=== PATIENT | male | born 1970 | race Caucasian/White ===

== ENCOUNTER 2017-08-18 08:47 | Emergency (ER) | payer OTHER ==
[2017-08-18] MEDS ORDERED: Ondansetron 4 MG/2 ML SDV IVPUSH STA (09:16)
[2017-08-18] MEDS ORDERED: Morphine 4 MG/ML Syringe IVPUSH ONE (09:16)
[2017-08-18] MEDS ORDERED: Sodium Chloride 0.9% 1,000 ML IV ONE (09:16)
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
[2017-08-18 09:53] LABS: CHLORIDE,CL 101 mEq/L (98-106); SODIUM,NA 132 mEq/L (136-145)
[2017-08-18] MEDS ORDERED: metroNIDAZOLE/Normal Saline 500 MG in Premix Bag 1 BAG IV ONE (11:21)
[2017-08-18] MEDS ORDERED: Levofloxacin/Dextrose 5%-Water 750 MG in Premix Bag 1 BAG IV ONE (11:21)
[2017-08-18 11:23] VITALS: BP 160/100
[2017-08-18] MEDS ORDERED: Levofloxacin/Dextrose 5%-Water 150 ML IV ONE (11:44)
== END 2017-08-18 12:12 ==
LOC: CC.ED 08:47
DX: K57.20 Diverticulitis of large intestine with perforation and abscess without bleeding (principal); N34.2 Other urethritis; Z88.0 Allergy status to penicillin; Z79.899 Other long term (current) drug therapy
CPT/HCPCS: 36415; 74176; 80053; 81001; 82150; 85025; 86140; 96361; 96365; 96368; 96375; 99285; J1956; J2270; J2405; J7030

== ENCOUNTER → 2017-10-11 | Day surgery (SDC) | payer OTHER ==
[~2017-10-11] MED LIST: Propofol 200 MG/20 ML SDV IV ONE
[2017-10-11] MEDS: Lactated Ringers 1,000 ML IV SCH (10:20)
[2017-10-11 12:28] VITALS: BP 148/78
--- NOTE | 2017-10-14 09:51 | OR ---
DATE OF OPERATION: 10/11/2017 PREOPERATIVE DIAGNOSIS: RECURRENT DIVERTICULITIS. POSTOPERATIVE DIAGNOSIS: RECURRENT DIVERTICULITIS. SURGEON: Rodri Chacon MD PROCEDURE: FULL-LENGTH COLONOSCOPY WITH BIOPSIES X1, POLYP REMOVAL X2. ANESTHESIA: CLINICAL UNIT EDUCATOR due to obesity. COMPLICATIONS: None. SPECIMEN: 1. Distal sigmoid biopsy. 2. Two small hyperplastic polyps, rectosigmoid junction. FINDINGS: 1. Full-length colonoscopy. 2. Moderate sigmoid diverticulosis, the distal sigmoid colon to rectosigmoid junction without any active in diverticulitis. 3. Two small hyperplastic polyps, rectosigmoid junction. RECOMMENDATIONS: Patient will follow up with [facility] for pathology reports. Given his recurrent problems and moderate disease, he may want to consider surgical consultation. INDICATIONS: Patient has had recurrent diverticulitis over the last six months. He was recommended to have a followup colonoscopy. DESCRIPTION OF PROCEDURE: The patient was prepped and draped, placed in the left lateral decubitus position. A lubricated Olympus colonoscope was inserted and easily advanced to the cecum. Direct visualization of the ileocecal valve and appendiceal orifice was accomplished. The bowel prep was adequate. There was stool throughout but most of this was suctionable. Upon withdrawal, cecum, ascending, and transverse colon were completely benign. In the descending colon and proximal sigmoid area, there were no abnormalities. Throughout the sigmoid region, patient had really no significant diverticular disease until its most distal portion; the mid to distal portion to the rectosigmoid junction had moderate diverticular disease without any acute inflammatory changes, no signs of active diverticulitis. In the rectosigmoid junction, there were two small flat hyperplastic polyps, both removed with a forceps biopsy in their entirety. No other gross abnormalities were seen. The rectal vault had a lot of stool, but with irrigation, it was able to suctioned. Retroflexion showed no perianal lesions. Air was then suctioned, scope removed without complication. JAMIE/JOHN /[id number]
== END ==
LOC: CC.SDS 10:01
PROVIDERS: ATTEND Family Medicine
DX: K57.30 Diverticulosis of large intestine without perforation or abscess without bleeding (principal); K63.5 Polyp of colon; Z88.0 Allergy status to penicillin
CPT/HCPCS: J2704; J7120

== ENCOUNTER 2018-10-08 16:58 | Inpatient (IN) | payer OTHER ==
[2018-10-08 17:44] LABS: CHLORIDE,CL 105 mEq/L (98-106); SODIUM,NA 144 mEq/L (136-145)
[2018-10-08] MEDS ORDERED: Iopamidol 755 Mg/ML 200 ML Bottle IV ONE (18:00)
[2018-10-08] MEDS: fentaNYL 100 MCG/2 ML SDV IVPUSH PRN ×2 (18:05→22:59)
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
[2018-10-08] MEDS: Lactated Ringers 1,000 ML IV SCH ×2 (18:10→18:15)
[2018-10-08] MEDS ORDERED: Ondansetron 4 MG Tab.DIS PO PRN (20:51)
[2018-10-08] MEDS ORDERED: Ondansetron 4 MG/2 ML SDV IV PRN (20:51)
[2018-10-08] MEDS ORDERED: Sodium Chloride 0.9% 10 ML Syringe FLUSH PRN (20:51)
[2018-10-08] MEDS ORDERED: Enoxaparin 40 MG/0.4 ML Syringe SUBCUT SCH (21:00)
[2018-10-08] MEDS ORDERED: Levofloxacin/Dextrose 5%-Water 500 MG in Premix Bag 1 BAG IV SCH (21:00)
[2018-10-09] MEDS: metroNIDAZOLE/Normal Saline 500 MG in Premix Bag 1 BAG IV SCH ×4 (00:11→20:51)
[2018-10-09] MEDS: Acetaminophen 325 MG Tab PO PRN ×2 (00:41→07:54)
[2018-10-09] MEDS: fentaNYL 100 MCG/2 ML SDV IVPUSH PRN ×4 (02:38→22:04)
[2018-10-09] MEDS: Lactated Ringers 1,000 ML IV SCH ×3 (03:19→18:30)
[2018-10-09] MEDS: Ibuprofen 200 MG Tab PO PRN ×2 (03:24→08:45)
[2018-10-09] MEDS ORDERED: Ibuprofen 200 MG Tab PO PRN (11:08)
[2018-10-09] MEDS ORDERED: Acetaminophen 325 MG Tab PO PRN ×2 (11:08)
[2018-10-09] MEDS ORDERED: Ondansetron 4 MG Tab.DIS PO PRN (11:08)
[2018-10-09] MEDS ORDERED: metroNIDAZOLE/Normal Saline 500 MG in Premix Bag 1 BAG IV SCH (12:00)
[2018-10-09] MEDS ORDERED: Levofloxacin/Dextrose 5%-Water 500 MG in Premix Bag 1 BAG IV SCH (12:00)
[2018-10-09] MEDS: Levofloxacin/Dextrose 5%-Water 500 MG in Premix Bag 1 BAG IV SCH (19:44)
--- NOTE | 2018-10-09 20:30 | PCM.PN ---
- General Info Date of Service: 10/09/18 Admission Dx/Problem (Free Text): Diverticulitis Functional Status: Reports: Pain Controlled, Urinating. Denies: Tolerating Diet , Ambulating - Review of Systems General: Reports: Fever, Weakness, Fatigue, Malaise HEENT: Reports: No Symptoms Pulmonary: Denies: Shortness of Breath, Cough Cardiovascular: Denies: Chest Pain, Edema, Lightheadedness Gastrointestinal: Reports: Abdominal Pain (states "was miserable through the night. Is passing flatus this morning and feels that helps"), Nausea. Denies: Vomiting Genitourinary: Reports: No Symptoms Musculoskeletal: Reports: No Symptoms Skin: Reports: No Symptoms Neurological: Reports: No Symptoms - Patient Data Vitals - Most Recent: Last Vital Signs Temp 99.4 F 10/09/18 17:11 Pulse 83 10/09/18 16:00 Resp 16 10/09/18 16:00 BP 151/82 H 10/09/18 16:00 Pulse Ox 96 10/09/18 16:00 Weight - Most Recent: 230 lb 11.2 oz I&O - Last 24 Hours: Intake & Output 10/09/18 10/09/18 10/09/18 06:59 14:59 22:59 Intake Total 1100 923 Balance 1100 923 Med Orders - Current: Current Medications Acetaminophen (Tylenol) 650 mg PO Q4H PRN PRN Reason: Fever Last Admin: 10/09/18 12:04 Dose: 650 mg Fentanyl (Sublimaze) 50 mcg IVPUSH Q2H PRN PRN Reason: Pain Last Admin: 10/09/18 18:29 Dose: 50 mcg Lactated Ringer's (Ringers, Lactated) 1,000 mls @ 125 mls/hr IV ASDIRECTED [facility] Last Admin: 10/09/18 18:30 Dose: 125 mls/hr Levofloxacin/Dextrose 500 mg/ (Premix) 100 mls @ 100 mls/hr IV DAILY@1999 [facility] Last Admin: 10/09/18 19:44 Dose: 100 mls/hr Metronidazole 500 mg/ Premix 100 mls @ 100 mls/hr IV TID@0600,1400,1999 [facility] Last Admin: 10/09/18 14:44 Dose: 100 mls/hr Ibuprofen (Motrin) 400 mg PO Q6H PRN PRN Reason: Fever Last Admin: 10/09/18 16:11 Dose: 400 mg Ondansetron HCl (Zofran Odt) 4 mg PO Q6H PRN PRN Reason: Nausea/Vomiting Discontinued Medications Acetaminophen (Tylenol) 650 mg PO Q4H PRN PRN Reason: Pain/Fever Last Admin: 10/09/18 07:54 Dose: 650 mg Acetaminophen (Tylenol) 650 mg PO Q6H PRN PRN Reason: Fever Enoxaparin Sodium (Lovenox) 40 mg SUBCUT Q24H [facility] Last Admin: 10/08/18 23:08 Dose: 40 mg Fentanyl (Sublimaze) 50 mcg IVPUSH Q2H PRN PRN Reason: Pain Last Admin: 10/09/18 02:38 Dose: 50 mcg Lactated Ringer's (Ringers, Lactated) 1,000 mls @ 150 mls/hr IV ASDIRECTED TED Last Admin: 10/09/18 03:19 Dose: 150 mls/hr Levofloxacin/Dextrose 500 mg/ (Premix) 100 mls @ 100 mls/hr IV Q24H [facility] Last Admin: 10/08/18 23:03 Dose: 100 mls/hr Metronidazole 500 mg/ Premix 100 mls @ 100 mls/hr IV Q8H [facility] Last Admin: 10/09/18 05:17 Dose: 100 mls/hr Levofloxacin/Dextrose 500 mg/ (Premix) 100 mls @ 100 mls/hr IV Q24H TED Metronidazole 500 mg/ Premix 100 mls @ 100 mls/hr IV Q8H [facility] Ibuprofen (Motrin) 400 mg PO Q6H PRN PRN Reason: Pain/Fever Last Admin: 10/09/18 08:45 Dose: 400 mg Iopamidol (Isovue-370 (76%)) 200 ml IV ONETIME ONE Stop: 10/08/18 18:01 Last Admin: 10/08/18 18:15 Dose: 160 ml Ondansetron HCl (Zofran Odt) 4 mg PO Q4H PRN PRN Reason: nausea, able to take PO Ondansetron HCl (Zofran) 4 mg IV Q4H PRN PRN Reason: Nausea/Vomiting Sodium Chloride (Saline Flush) 10 ml FLUSH ASDIRECTED PRN PRN Reason: Keep Vein Open - Exam General: Alert, Oriented HEENT: Mucous Membr. Moist/[place] Neck: Supple Lungs: Clear to Auscultation, Normal Respiratory Effort Cardiovascular: Regular Rate, Regular Rhythm GI/Abdominal Exam: Normal Bowel Sounds, Soft, Tender (tender to bilateral lower quadrants) Extremities: Normal Inspection, No Pedal Edema Skin: Warm, Dry Neurological: No New Focal Deficit - Problem List & Annotations (1) Diverticulitis SNOMED Code(s): 445958681 Code(s): K57.92 - DVTRCLI OF INTEST, PART UNSP, W/O PERF OR ABSCESS W/O BLEED Status: Acute Priority: High Current Visit: Yes - Problem List Review Problem List Initiated/Reviewed/Updated: Yes - My Orders Last 24 Hours: My Active Orders 10/08/18 20:51 Oxygen Therapy [RC] .PRN Up ad Lachelle [RC] .PRN Vital Signs [RC] 0000,0400,0800,1200,1600,2000 Peripheral IV Insertion Adult [OM.PC] Routine Resuscitation Status Routine 10/08/18 23:38 MARCELA Hose [Antiembolic Hose] [OM.PC] Routine 10/08/18 23:39 Antiembolic Devices [RC] 1000,2200 10/09/18 08:45 Patient Status [ADT] Routine 10/09/18 10:53 fentaNYL [Sublimaze] 50 mcg IVPUSH Q2H PRN 10/09/18 11:00 Lactated Ringers [Ringers, Lactated] 1,000 ml IV ASDIRECTED 10/09/18 11:08 Acetaminophen [Tylenol] 650 mg PO Q4H PRN Ibuprofen [Motrin] 400 mg PO Q6H PRN Ondansetron [Zofran ODT] 4 mg PO Q6H PRN 10/09/18 14:00 metroNIDAZOLE/Normal Saline [Flagyl 500 MG in NS 100 ML] 500 mg Premix Bag 1 bag IV TID@0600,1399,199910/09/18 20:00 Levofloxacin/Dextrose 5%-Water [Levaquin in D5W 500 MG/100 ML] 500 mg Premix Bag 1 bag IV DAILY@199910/09/18 Breakfast Clear Liquid Diet [DIET] - Assessment Assessment:: Diverticulitis - Plan Plan:: Patient states was still having pain through the night, does feel better now over the last hour. He is passing flatus now which he feels has helped. Febrile throughout the night. Does not improve much with tylenol or ibuprofen. He states unable to tolerate much for liquids this am, has had few sips of coffee. Abdomen remains tender to the lower quads yet this am. Continue with IV Levaquin and Flagyl. Repeat labs in am. Obtain blood cultures. Advised patient that if pain increases, need to notify nurses as would need to repeat CT due to concerns of possible perforation.
[2018-10-10] MEDS: Lactated Ringers 1,000 ML IV SCH (04:35)
[2018-10-10] MEDS: metroNIDAZOLE/Normal Saline 500 MG in Premix Bag 1 BAG IV SCH ×3 (05:43→19:35)
[2018-10-10 08:04] LABS: CHLORIDE,CL 104 mEq/L (98-106); SODIUM,NA 139 mEq/L (136-145)
--- NOTE | 2018-10-10 16:37 | PCM.PN ---
- General Info Date of Service: 10/10/18 Admission Dx/Problem (Free Text): Diverticulitis Functional Status: Reports: Pain Controlled, Tolerating Diet (tolerating clear liquids), Ambulating, Urinating - Review of Systems General: Reports: Fever, Malaise HEENT: Reports: No Symptoms Pulmonary: Denies: Shortness of Breath, Cough Cardiovascular: Denies: Chest Pain, Edema, Lightheadedness Gastrointestinal: Reports: Abdominal Pain, Nausea. Denies: Diarrhea, Hematochezia, Melena, Vomiting Genitourinary: Reports: No Symptoms Musculoskeletal: Reports: No Symptoms Skin: Reports: No Symptoms Neurological: Reports: No Symptoms Psychiatric: Reports: No Symptoms - Patient Data Vitals - Most Recent: Last Vital Signs Temp 99.6 F 10/10/18 16:00 Pulse 88 10/10/18 16:00 Resp 16 10/10/18 16:00 BP 141/86 H 10/10/18 16:00 Pulse Ox 98 10/10/18 16:00 Weight - Most Recent: 230 lb 11.2 oz I&O - Last 24 Hours: Intake & Output 10/10/18 10/10/18 10/10/18 06:59 14:59 22:59 Intake Total 1100 477 Balance 1100 477 Lab Results Last 24 Hours: Laboratory Results - last 24 hr 10/10/18 10/10/18 Range/Units 05:11 05:11 WBC 8.2 (5.0-10.0) 10^3/uL RBC 4.55 (4.50-6.00) 10^6/uL Hgb 14.0 (14.0-18.0) g/dL Hct 41.8 (40.0-54.0) % MCV 91.9 (82.0-94.0) fL MCH 30.8 (27.0-32.0) pg MCHC 33.5 (33.0-38.0) g/dL RDW Coeff of Annamaria 12.9 (11.0-15.0) % Plt Count 125 L (150-400) 10^3/uL Neut % (Auto) 79.1 (35-85) % Lymph % (Auto) 10.4 (10-55) % [place] % (Auto) 8.5 (0-16) % Eos % (Auto) 1.9 (0-5) % Baso % (Auto) 0.1 (0-3) % Neut # (Auto) 6.50 (1.80-7.00) 10^3/uL Lymph # (Auto) 0.86 L (1.00-4.80) 10^3/uL [place] # (Auto) 0.70 (0.00-0.80) 10^3/uL Eos # (Auto) 0.16 (0.00-0.45) 10^3/uL Baso # (Auto) 0.01 10^3/uL Sodium 139 (136-145) mEq/L Potassium 4.2 (3.5-5.0) mEq/L Chloride 104 (98-106) mEq/L Carbon Dioxide 28 (21-32) mmol/L BUN 8 (7-18) mg/dL Creatinine 0.8 (0.7-1.3) mg/dL Est Cr Clr Drug Dosing 115.38 mL/min Estimated GFR (MDRD) > 60 (>=60) mL/min Glucose 90 (75-99) mg/dL Calcium 9.2 (8.4-10.1) mg/dL C-Reactive Protein 35.6 H (0.2-0.8) mg/dL Dameon Results Last 24 Hours: Microbiology 10/09/18 04:35 Aerobic Blood Culture - Preliminary Blood NO GROWTH AFTER 1 DAY Anaerobic Blood Culture - Preliminary NO GROWTH AFTER 1 DAY 10/09/18 08:44 Aerobic Blood Culture - Preliminary Blood NO GROWTH AFTER 1 DAY Anaerobic Blood Culture - Preliminary NO GROWTH AFTER 1 DAY Med Orders - Current: Current Medications Acetaminophen (Tylenol) 650 mg PO Q4H PRN PRN Reason: Fever Last Admin: 10/09/18 12:04 Dose: 650 mg Fentanyl (Sublimaze) 50 mcg IVPUSH Q2H PRN PRN Reason: Pain Last Admin: 10/09/18 22:04 Dose: 50 mcg Lactated Ringer's (Ringers, Lactated) 1,000 mls @ 50 mls/hr IV ASDIRECTED TED Last Infusion: 10/10/18 08:24 Dose: 50 mls/hr Levofloxacin/Dextrose 500 mg/ (Premix) 100 mls @ 100 mls/hr IV DAILY@2000 [facility] Last Admin: 10/09/18 19:44 Dose: 100 mls/hr Metronidazole 500 mg/ Premix 100 mls @ 100 mls/hr IV TID@0600,1400,2000 [facility] Last Admin: 10/10/18 13:59 Dose: 100 mls/hr Ibuprofen (Motrin) 400 mg PO Q6H PRN PRN Reason: Fever Last Admin: 10/09/18 16:11 Dose: 400 mg Ondansetron HCl (Zofran Odt) 4 mg PO Q6H PRN PRN Reason: Nausea/Vomiting Discontinued Medications Acetaminophen (Tylenol) 650 mg PO Q4H PRN PRN Reason: Pain/Fever Last Admin: 10/09/18 07:54 Dose: 650 mg Acetaminophen (Tylenol) 650 mg PO Q6H PRN PRN Reason: Fever Enoxaparin Sodium (Lovenox) 40 mg SUBCUT Q24H [facility] Last Admin: 10/08/18 23:08 Dose: 40 mg Fentanyl (Sublimaze) 50 mcg IVPUSH Q2H PRN PRN Reason: Pain Last Admin: 10/09/18 02:38 Dose: 50 mcg Lactated Ringer's (Ringers, Lactated) 1,000 mls @ 150 mls/hr IV ASDIRECTED [facility] Last Admin: 10/09/18 03:19 Dose: 150 mls/hr Levofloxacin/Dextrose 500 mg/ (Premix) 100 mls @ 100 mls/hr IV Q24H [facility] Last Admin: 10/08/18 23:03 Dose: 100 mls/hr Metronidazole 500 mg/ Premix 100 mls @ 100 mls/hr IV Q8H [facility] Last Admin: 10/09/18 05:17 Dose: 100 mls/hr Levofloxacin/Dextrose 500 mg/ (Premix) 100 mls @ 100 mls/hr IV Q24H [facility] Metronidazole 500 mg/ Premix 100 mls @ 100 mls/hr IV Q8H [facility] Ibuprofen (Motrin) 400 mg PO Q6H PRN PRN Reason: Pain/Fever Last Admin: 10/09/18 08:45 Dose: 400 mg Iopamidol (Isovue-370 (76%)) 200 ml IV ONETIME ONE Stop: 10/08/18 18:01 Last Admin: 10/08/18 18:15 Dose: 160 ml Ondansetron HCl (Zofran Odt) 4 mg PO Q4H PRN PRN Reason: nausea, able to take PO Ondansetron HCl (Zofran) 4 mg IV Q4H PRN PRN Reason: Nausea/Vomiting Sodium Chloride (Saline Flush) 10 ml FLUSH ASDIRECTED PRN PRN Reason: Keep Vein Open - Exam General: Alert, Oriented HEENT: Mucous Membr. Moist/[place] Neck: Supple Lungs: Clear to Auscultation, Normal Respiratory Effort Cardiovascular: Regular Rate, Regular Rhythm GI/Abdominal Exam: Normal Bowel Sounds, Soft, Tender (bilateral lower quadrants) Extremities: Normal Inspection, No Pedal Edema Skin: Warm, Dry Neurological: No New Focal Deficit - Problem List & Annotations (1) Diverticulitis SNOMED Code(s): 037371729 Code(s): K57.92 - DVTRCLI OF INTEST, PART UNSP, W/O PERF OR ABSCESS W/O BLEED Status: Acute Priority: High Current Visit: Yes - Problem List Review Problem List Initiated/Reviewed/Updated: Yes - My Orders Last 24 Hours: My Active Orders 10/09/18 20:00 Levofloxacin/Dextrose 5%-Water [Levaquin in D5W 500 MG/100 ML] 500 mg Premix Bag 1 bag IV DAILY@199910/10/18 Lunch Advance Diet Instructions [DIET] 10/11/18 05:11 BASIC METABOLIC PANEL,BMP [CHEM] AM C-REACTIVE PROTEIN [CHEM] AM CBC WITH AUTO DIFF [HEME] AM - Assessment Assessment:: Diverticulitis - Plan Plan:: Patient states was still having pain through the night, does feel better now over the last hour. He is passing flatus now which he feels has helped. Febrile throughout the night. Does not improve much with tylenol or ibuprofen. He states unable to tolerate much for liquids this am, has had few sips of coffee. Abdomen remains tender to the lower quads yet this am. Continue with IV Levaquin and Flagyl. Repeat labs in am. Obtain blood cultures. Advised patient that if pain increases, need to notify nurses as would need to repeat CT due to concerns of possible perforation. 10-10-2018 Patient states feeling mildly better. Still has lower quadrant abdominal pain. States still had trouble with meal intake yesterday but tolerating coffee this am. He did have a bowel movement this am, normal in nature, feels somewhat helped discomfort. Is tentative on increasing diet but does admit is "finally hungry". Abdomen is soft, tender bilaterally. Temp is now low grade. Blood cultures thus far negative. Will continue with IV antibiotics. Advance diet to full liquids. Decrease IV fluids to 50 ml/hr. Repeat labs in am.
[2018-10-10] MEDS: Levofloxacin/Dextrose 5%-Water 500 MG in Premix Bag 1 BAG IV SCH (19:35)
[2018-10-11] MEDS: Lactated Ringers 1,000 ML IV SCH (00:28)
[2018-10-11] MEDS: metroNIDAZOLE/Normal Saline 500 MG in Premix Bag 1 BAG IV SCH ×3 (06:08→20:01)
[2018-10-11 07:26] LABS: CHLORIDE,CL 106 mEq/L (98-106); SODIUM,NA 142 mEq/L (136-145)
--- NOTE | 2018-10-11 16:18 | PCM.PN ---
- General Info Date of Service: 10/11/18 Admission Dx/Problem (Free Text): Diverticulitis Subjective Update: Robbin is a 47 year old male who was admitted to the hospital on 10/08/2018 for diverticulitis. He reports he is feeling much better. Has been tolerating a soft diet without issue. He reports his abdominal pain seems to be resolving. Has not been nauseated or had emesis. Reports he did have a formed BM this morning. He has been afebrile. He denies any concerns today. Functional Status: Reports: Pain Controlled, Tolerating Diet, Ambulating, Urinating. Denies: New Symptoms - Review of Systems General: Reports: No Symptoms. Denies: Fever, Weakness, Malaise, Chills Pulmonary: Reports: No Symptoms Cardiovascular: Reports: No Symptoms Gastrointestinal: Reports: Abdominal Pain (improving). Denies: Constipation, Decreased Appetite, Diarrhea, Hematochezia, Melena, Nausea, Vomiting Genitourinary: Reports: No Symptoms Musculoskeletal: Reports: No Symptoms Skin: Reports: No Symptoms Neurological: Reports: No Symptoms Psychiatric: Reports: No Symptoms - Patient Data Vitals - Most Recent: Last Vital Signs Temp 98.8 F 10/11/18 07:44 Pulse 75 10/11/18 07:44 Resp 16 10/11/18 07:44 BP 143/73 H 10/11/18 07:44 Pulse Ox 97 10/11/18 07:44 Weight - Most Recent: 230 lb 11.2 oz I&O - Last 24 Hours: Intake & Output 10/11/18 10/11/18 10/11/18 06:59 14:59 22:59 Intake Total 100 Balance 100 Lab Results Last 24 Hours: Laboratory Results - last 24 hr 10/11/18 10/11/18 Range/Units 07:00 07:00 WBC 5.6 (5.0-10.0) 10^3/uL RBC 4.72 (4.50-6.00) 10^6/uL Hgb 14.4 (14.0-18.0) g/dL Hct 43.0 (40.0-54.0) % MCV 91.1 (82.0-94.0) fL MCH 30.5 (27.0-32.0) pg MCHC 33.5 (33.0-38.0) g/dL RDW Coeff of Annamaria 13.0 (11.0-15.0) % Plt Count 154 (150-400) 10^3/uL Neut % (Auto) 64.3 (35-85) % Lymph % (Auto) 18.0 (10-55) % [place] % (Auto) 13.2 (0-16) % Eos % (Auto) 4.1 (0-5) % Baso % (Auto) 0.4 (0-3) % Neut # (Auto) 3.61 (1.80-7.00) 10^3/uL Lymph # (Auto) 1.01 (1.00-4.80) 10^3/uL [place] # (Auto) 0.74 (0.00-0.80) 10^3/uL Eos # (Auto) 0.23 (0.00-0.45) 10^3/uL Baso # (Auto) 0.02 10^3/uL Sodium 142 (136-145) mEq/L Potassium 4.2 (3.5-5.0) mEq/L Chloride 106 (98-106) mEq/L Carbon Dioxide 31 (21-32) mmol/L BUN 12 (7-18) mg/dL Creatinine 0.9 (0.7-1.3) mg/dL Est Cr Clr Drug Dosing 102.56 mL/min Estimated GFR (MDRD) > 60 (>=60) mL/min Glucose 116 H D (75-99) mg/dL Calcium 9.1 (8.4-10.1) mg/dL C-Reactive Protein 21.3 H (0.2-0.8) mg/dL Dameon Results Last 24 Hours: Microbiology 10/09/18 04:35 Aerobic Blood Culture - Preliminary Blood NO GROWTH AFTER 2 DAYS Anaerobic Blood Culture - Preliminary NO GROWTH AFTER 2 DAYS 10/09/18 08:44 Aerobic Blood Culture - Preliminary Blood NO GROWTH AFTER 2 DAYS Anaerobic Blood Culture - Preliminary NO GROWTH AFTER 2 DAYS Med Orders - Current: Current Medications Acetaminophen (Tylenol) 650 mg PO Q4H PRN PRN Reason: Fever Last Admin: 10/09/18 12:04 Dose: 650 mg Fentanyl (Sublimaze) 50 mcg IVPUSH Q2H PRN PRN Reason: Pain Last Admin: 10/09/18 22:04 Dose: 50 mcg Levofloxacin/Dextrose 500 mg/ (Premix) 100 mls @ 100 mls/hr IV DAILY@1999 [facility] Last Admin: 10/10/18 19:35 Dose: 100 mls/hr Metronidazole 500 mg/ Premix 100 mls @ 100 mls/hr IV TID@0600,1400,1999 [facility] Last Admin: 10/11/18 13:53 Dose: 100 mls/hr Ibuprofen (Motrin) 400 mg PO Q6H PRN PRN Reason: Fever Last Admin: 10/09/18 16:11 Dose: 400 mg Ondansetron HCl (Zofran Odt) 4 mg PO Q6H PRN PRN Reason: Nausea/Vomiting Discontinued Medications Acetaminophen (Tylenol) 650 mg PO Q4H PRN PRN Reason: Pain/Fever Last Admin: 10/09/18 07:54 Dose: 650 mg Acetaminophen (Tylenol) 650 mg PO Q6H PRN PRN Reason: Fever Enoxaparin Sodium (Lovenox) 40 mg SUBCUT Q24H [facility] Last Admin: 10/08/18 23:08 Dose: 40 mg Fentanyl (Sublimaze) 50 mcg IVPUSH Q2H PRN PRN Reason: Pain Last Admin: 10/09/18 02:38 Dose: 50 mcg Lactated Ringer's (Ringers, Lactated) 1,000 mls @ 150 mls/hr IV ASDIRECTED [facility] Last Admin: 10/09/18 03:19 Dose: 150 mls/hr Levofloxacin/Dextrose 500 mg/ (Premix) 100 mls @ 100 mls/hr IV Q24H [facility] Last Admin: 10/08/18 23:03 Dose: 100 mls/hr Metronidazole 500 mg/ Premix 100 mls @ 100 mls/hr IV Q8H [facility] Last Admin: 10/09/18 05:17 Dose: 100 mls/hr Lactated Ringer's (Ringers, Lactated) 1,000 mls @ 50 mls/hr IV ASDIRECTED [facility] Last Admin: 10/11/18 00:28 Dose: 50 mls/hr Levofloxacin/Dextrose 500 mg/ (Premix) 100 mls @ 100 mls/hr IV Q24H [facility] Metronidazole 500 mg/ Premix 100 mls @ 100 mls/hr IV Q8H [facility] Ibuprofen (Motrin) 400 mg PO Q6H PRN PRN Reason: Pain/Fever Last Admin: 10/09/18 08:45 Dose: 400 mg Iopamidol (Isovue-370 (76%)) 200 ml IV ONETIME ONE Stop: 10/08/18 18:01 Last Admin: 10/08/18 18:15 Dose: 160 ml Ondansetron HCl (Zofran Odt) 4 mg PO Q4H PRN PRN Reason: nausea, able to take PO Ondansetron HCl (Zofran) 4 mg IV Q4H PRN PRN Reason: Nausea/Vomiting Sodium Chloride (Saline Flush) 10 ml FLUSH ASDIRECTED PRN PRN Reason: Keep Vein Open - Exam Quality Assessment: DVT Prophylaxis General: Alert, Oriented, No Acute Distress Neck: Supple Lungs: Clear to Auscultation, Normal Respiratory Effort Cardiovascular: Regular Rate, Regular Rhythm GI/Abdominal Exam: Normal Bowel Sounds, Soft, No Distention, Tender (mild tenderness to bilateral lower quadrants). No: Guarding, Rigid Back Exam: Normal Inspection, Full Range of Motion Extremities: Normal Inspection, Normal Range of Motion, Non-Tender, No Pedal Edema, Normal Capillary Refill Neurological: No New Focal Deficit Psy/Mental Status: Alert, Normal Affect, Normal Mood - Problem List & Annotations (1) Diverticulitis SNOMED Code(s): 686524582 Code(s): K57.92 - DVTRCLI OF INTEST, PART UNSP, W/O PERF OR ABSCESS W/O BLEED Status: Acute Priority: High - Problem List Review Problem List Initiated/Reviewed/Updated: Yes - Assessment Assessment:: Diverticulitis - Plan Plan:: Patient states was still having pain through the night, does feel better now over the last hour. He is passing flatus now which he feels has helped. Febrile throughout the night. Does not improve much with tylenol or ibuprofen. He states unable to tolerate much for liquids this am, has had few sips of coffee. Abdomen remains tender to the lower quads yet this am. Continue with IV Levaquin and Flagyl. Repeat labs in am. Obtain blood cultures. Advised patient that if pain increases, need to notify nurses as would need to repeat CT due to concerns of possible perforation. 10-10-2018 Patient states feeling mildly better. Still has lower quadrant abdominal pain. States still had trouble with meal intake yesterday but tolerating coffee this am. He did have a bowel movement this am, normal in nature, feels somewhat helped discomfort. Is tentative on increasing diet but does admit is "finally hungry". Abdomen is soft, tender bilaterally. Temp is now low grade. Blood cultures thus far negative. Will continue with IV antibiotics. Advance diet to full liquids. Decrease IV fluids to 50 ml/hr. Repeat labs in am. 10/11/2018 Labs improving. WBC WNL. CRP decreased from 35.6 to 21.3 today. Has been afebrile. Abdominal pain improving and patient tolerating diet. Blood cultures remain negative to date. Continue with IV antibiotics. Continue with soft diet. Patient having good oral intake. Saline lock IV. Repeat labs in morning. If CRP continues to decrease, will discharge home on oral antibiotics. Patient agreeable with this plan.
[2018-10-11] MEDS: Levofloxacin/Dextrose 5%-Water 500 MG in Premix Bag 1 BAG IV SCH (20:01)
[2018-10-12] MEDS: metroNIDAZOLE/Normal Saline 500 MG in Premix Bag 1 BAG IV SCH (05:49)
[2018-10-12 08:08] VITALS: BP 132/61
[2018-10-12 08:09] LABS: CHLORIDE,CL 105 mEq/L (98-106); SODIUM,NA 142 mEq/L (136-145)
[2018-10-12] MEDS ORDERED: Take Home: Levofloxacin 500 MG Tab, 1 Tab Pack PO ONE (10:56)
[2018-10-12] MEDS ORDERED: Take Home: metroNIDAZOLE 500 MG Tab, 4 Tab Pack PO ONE (10:56)
--- NOTE | 2018-10-12 10:58 | PCM.DCSUM1 ---
Discharge Summary - Hospital Course HPI Initial Comments: Robbin is a 47 year old male who was admitted to the hospital 10/08/2018 for diverticulitis. Was started on IV Levaquin and Flagyl and diet was advanced cautiously throughout hospital stay. Did have elevated temperature on hospital day 2, so blood cultures were obtained. Blood cultures negative. Patient's abdominal pain improved throughout stay and on day of discharge was having no abdominal pain and tolerating a soft diet. He was having normal stools and no nausea or vomiting. Lab work all stable with CRP decreasing. Patient will be discharged home on oral Levaquin and Flagyl to complete 10 day course of antibiotics. He is advised to follow up with Dr. Chacon in 1 week for recheck, sooner if any issues. Patient discharged home in satisfactory condition. - Discharge Data Discharge Date: 10/12/18 Discharge Disposition: Home, Self-Care 01 Condition: Good - Discharge Diagnosis/Problem(s) (1) Diverticulitis SNOMED Code(s): 072881446 ICD Code: K57.92 - DVTRCLI OF INTEST, PART UNSP, W/O PERF OR ABSCESS W/O BLEED Status: Acute Priority: High - Patient Instructions Diet: GI Soft/Low Residue/Low Fiber Activity: As Tolerated Notify Provider of: Fever, Increased Pain, Nausea and/or Vomiting Other/Special Instructions: - Levaquin daily at bedtime x 7 additional days. - Flagyl every 8 hours. Need dose today at 2 pm & 10 pm. - Remaining prescriptions can be picked up at pharmacy. - Follow up for hospital discharge next week with PCP - Discharge Plan *PRESCRIPTION DRUG MONITORING PROGRAM REVIEWED*: No *COPY OF PRESCRIPTION DRUG MONITORING REPORT IN PATIENT CHRISSIE: No Prescriptions/Med Rec: Levofloxacin [Levaquin] 500 mg PO DAILY #7 tablet metroNIDAZOLE [Flagyl] 500 mg PO Q8H 6 Days #18 tab Home Medications: Home Meds Naproxen Sodium [Aleve] 220 mg PO DAILY PRN 08/18/17 [History] Gabapentin [Neurontin] 100 mg PO TID 10/08/18 [History] Levofloxacin [Levaquin] 500 mg PO DAILY #7 tablet 10/12/18 [Rx] metroNIDAZOLE [Flagyl] 500 mg PO Q8H 6 Days #18 tab 10/12/18 [Rx] Patient Handouts: Diverticulitis, [id number] Forms: ED Department Discharge Referrals: Rodri Chacon MD [ED Physician] - - Discharge Summary/Plan Comment DC Time >30 min.: No - General Info Date of Service: 10/12/18 Admission Dx/Problem (Free Text: Diverticulitis Subjective Update: Patient reports he is feeling much better this morning. Is no longer having abdominal pain and is tolerating soft diet without issue. He reports he did have normal bowel movement today. Has been afebrile. Functional Status: Reports: Pain Controlled, Tolerating Diet, Ambulating, Urinating. Denies: New Symptoms - Review of Systems General: Denies: Fever, Chills Pulmonary: Reports: No Symptoms Cardiovascular: Reports: No Symptoms Gastrointestinal: Reports: No Symptoms. Denies: Abdominal Pain, Constipation, Decreased Appetite, Diarrhea, Hematochezia, Melena, Nausea, Vomiting Genitourinary: Reports: No Symptoms Musculoskeletal: Reports: No Symptoms Skin: Reports: No Symptoms Neurological: Reports: No Symptoms Psychiatric: Reports: No Symptoms - Patient Data Vitals - Most Recent: Last Vital Signs Temp 97 F 10/12/18 08:00 Pulse 75 10/12/18 08:00 Resp 18 10/12/18 08:00 BP 132/61 10/12/18 08:00 Pulse Ox 98 10/12/18 08:00 Weight - Most Recent: 230 lb 11.2 oz I&O - Last 24 hours: Intake & Output 10/11/18 10/12/18 10/12/18 22:59 06:59 14:59 Intake Total 100 Balance 100 Lab Results - Last 24 hrs: Laboratory Results - last 24 hr 10/12/18 10/12/18 Range/Units 07:00 07:00 WBC 5.1 (5.0-10.0) 10^3/uL RBC 4.63 (4.50-6.00) 10^6/uL Hgb 14.3 (14.0-18.0) g/dL Hct 42.0 (40.0-54.0) % MCV 90.7 (82.0-94.0) fL MCH 30.9 (27.0-32.0) pg MCHC 34.0 (33.0-38.0) g/dL RDW Coeff of Annamaria 12.8 (11.0-15.0) % Plt Count 177 (150-400) 10^3/uL Neut % (Auto) 62.3 (35-85) % Lymph % (Auto) 20.9 (10-55) % [place] % (Auto) 11.1 (0-16) % Eos % (Auto) 5.3 H (0-5) % Baso % (Auto) 0.4 (0-3) % Neut # (Auto) 3.19 (1.80-7.00) 10^3/uL Lymph # (Auto) 1.07 (1.00-4.80) 10^3/uL [place] # (Auto) 0.57 (0.00-0.80) 10^3/uL Eos # (Auto) 0.27 (0.00-0.45) 10^3/uL Baso # (Auto) 0.02 10^3/uL Sodium 142 (136-145) mEq/L Potassium 4.0 (3.5-5.0) mEq/L Chloride 105 (98-106) mEq/L Carbon Dioxide 30 (21-32) mmol/L BUN 12 (7-18) mg/dL Creatinine 0.9 (0.7-1.3) mg/dL Est Cr Clr Drug Dosing 102.56 mL/min Estimated GFR (MDRD) > 60 (>=60) mL/min Glucose 112 H (75-99) mg/dL Calcium 8.9 (8.4-10.1) mg/dL C-Reactive Protein 9.5 H (0.2-0.8) mg/dL NILA Results - Last 24 hrs: Microbiology 10/09/18 04:35 Aerobic Blood Culture - Preliminary Blood NO GROWTH AFTER 3 DAYS Anaerobic Blood Culture - Preliminary NO GROWTH AFTER 3 DAYS 10/09/18 08:44 Aerobic Blood Culture - Preliminary Blood NO GROWTH AFTER 3 DAYS Anaerobic Blood Culture - Preliminary NO GROWTH AFTER 3 DAYS Med Orders - Current: Current Medications Acetaminophen (Tylenol) 650 mg PO Q4H PRN PRN Reason: Fever Last Admin: 10/09/18 12:04 Dose: 650 mg Fentanyl (Sublimaze) 50 mcg IVPUSH Q2H PRN PRN Reason: Pain Last Admin: 10/09/18 22:04 Dose: 50 mcg Levofloxacin/Dextrose 500 mg/ (Premix) 100 mls @ 100 mls/hr IV DAILY@1999 [facility] Last Admin: 10/11/18 20:01 Dose: 100 mls/hr Metronidazole 500 mg/ Premix 100 mls @ 100 mls/hr IV TID@0600,1400,2000 [facility] Last Admin: 10/12/18 05:49 Dose: 100 mls/hr Ibuprofen (Motrin) 400 mg PO Q6H PRN PRN Reason: Fever Last Admin: 10/09/18 16:11 Dose: 400 mg Ondansetron HCl (Zofran Odt) 4 mg PO Q6H PRN PRN Reason: Nausea/Vomiting Discontinued Medications Acetaminophen (Tylenol) 650 mg PO Q4H PRN PRN Reason: Pain/Fever Last Admin: 10/09/18 07:54 Dose: 650 mg Acetaminophen (Tylenol) 650 mg PO Q6H PRN PRN Reason: Fever Enoxaparin Sodium (Lovenox) 40 mg SUBCUT Q24H [facility] Last Admin: 10/08/18 23:08 Dose: 40 mg Fentanyl (Sublimaze) 50 mcg IVPUSH Q2H PRN PRN Reason: Pain Last Admin: 10/09/18 02:38 Dose: 50 mcg Lactated Ringer's (Ringers, Lactated) 1,000 mls @ 150 mls/hr IV ASDIRECTED [facility] Last Admin: 10/09/18 03:19 Dose: 150 mls/hr Levofloxacin/Dextrose 500 mg/ (Premix) 100 mls @ 100 mls/hr IV Q24H [facility] Last Admin: 10/08/18 23:03 Dose: 100 mls/hr Metronidazole 500 mg/ Premix 100 mls @ 100 mls/hr IV Q8H [facility] Last Admin: 10/09/18 05:17 Dose: 100 mls/hr Lactated Ringer's (Ringers, Lactated) 1,000 mls @ 50 mls/hr IV ASDIRECTED [facility] Last Admin: 10/11/18 00:28 Dose: 50 mls/hr Levofloxacin/Dextrose 500 mg/ (Premix) 100 mls @ 100 mls/hr IV Q24H [facility] Metronidazole 500 mg/ Premix 100 mls @ 100 mls/hr IV Q8H [facility] Ibuprofen (Motrin) 400 mg PO Q6H PRN PRN Reason: Pain/Fever Last Admin: 10/09/18 08:45 Dose: 400 mg Iopamidol (Isovue-370 (76%)) 200 ml IV ONETIME ONE Stop: 10/08/18 18:01 Last Admin: 10/08/18 18:15 Dose: 160 ml Ondansetron HCl (Zofran Odt) 4 mg PO Q4H PRN PRN Reason: nausea, able to take PO Ondansetron HCl (Zofran) 4 mg IV Q4H PRN PRN Reason: Nausea/Vomiting Sodium Chloride (Saline Flush) 10 ml FLUSH ASDIRECTED PRN PRN Reason: Keep Vein Open - Exam Quality Assessment: Reports: DVT Prophylaxis General: Reports: Alert, Oriented, No Acute Distress Neck: Reports: Supple Lungs: Reports: Clear to Auscultation, Normal Respiratory Effort Cardiovascular: Reports: Regular Rate, Regular Rhythm GI/Abdominal Exam: Normal Bowel Sounds, Soft, Non-Tender, No Organomegaly, No Distention, No Abnormal Bruit, No Mass Back Exam: Reports: Normal Inspection, Full Range of Motion Extremities: Normal Inspection, Normal Range of Motion, Non-Tender, No Pedal Edema, Normal Capillary Refill Neurological: Reports: No New Focal Deficit Psy/Mental Status: Reports: Alert, Normal Affect, Normal Mood
[2018-10-12] MEDS ORDERED: metroNIDAZOLE 500 MG Tab PO ONE (11:29)
[2018-10-12] MEDS ORDERED: Levofloxacin 500 MG Tab PO ONE (11:29)
== END 2018-10-12 11:30 | disposition home or self-care (01) | DRG 392 ==
LOC: CC.ED 16:58 → OBSVTOIN 20:51 → CC.MS 20:51 → INTOOBSV 20:51 → UNDOADMOB 20:51 → CC.ED 21:04 → UNDOADMOB 22:43 → CC.MS 22:43 → OBSVTOIN 10-09 08:45
PROVIDERS: ADMIT Physician Assistant Medical; ATTEND Family Medicine
DX: K57.92 Diverticulitis of intestine, part unspecified, without perforation or abscess without bleeding (principal); Z79.899 Other long term (current) drug therapy; Z79.2 Long term (current) use of antibiotics; Z88.0 Allergy status to penicillin; Z98.84 Bariatric surgery status
CPT/HCPCS: 36415; 74019; 74177; 80048; 80053; 81003; 85025; 86140; 87040; 96361; 96365; 96366; 96367; 96372; 96374; 96375; 96376; 99285-25; A9270-GY; G0378; J1650; J1956; J3010; J3490; J7120; Q9967